=== PATIENT | female | born 1990 | race Caucasian/White ===

== ENCOUNTER 2023-05-25 10:45 | Inpatient (IN) | payer MEDICAID ==
[~2023-05-25] VITALS: Ht 170.2 cm; Wt 57.1 kg
[~2023-05-25 10:45] MED LIST: DIVA-112 PO; FERR325T27 PO; RISP1TAB48 PO
[2023-05-25 11:43] LABS: BASOPHILS % (AUTO) 0.7 % (0.0-2.0); EOSINOPHILS % (AUTO) 0.9 % (1.0-6.0); HEMATOCRIT 39.3 % (36-46); HEMOGLOBIN 12.8 g/dL (12.0-16.0); LYMPHOCYTES # (AUTO) 1.3 K/uL (1.0-4.8); LYMPHOCYTES % (AUTO) 22.9 % (22.0-44.0); MEAN CORPUSCULAR HEMOGLOBIN 27.7 pg (26.0-34.0); MEAN CORPUSCULAR HGB CONC 32.7 G/dL (31.0-37.0); MEAN CORPUSCULAR VOLUME 85 fL (80-100); MONOCYTES # (AUTO) 0.5 K/uL (0.1-1.0); MONOCYTES % (AUTO) 9.5 % (2.0-9.0); NEUTROPHILS # (AUTO) 3.8 K/uL (1.8-7.7); PLATELET COUNT (AUTO) 251 K/uL (150-450); RED BLOOD CELL COUNT(AUTO) 4.63 MIL/uL (4.00-5.20); RED CELL DISTRIBUTION WIDTH 15.5 % (11.5-14.5); WHITE BLOOD COUNT (AUTO) 5.7 K/uL (4.5-11.0)
[2023-05-25 11:49] LABS: ANION GAP 8 mmol/L (8-16); CALCIUM, TOTAL 8.8 mg/dL (8.8-10.5); CARBON DIOXIDE 28 mmol/L (22-29); CHLORIDE 103 mmol/L (98-107); CREATININE 0.76 mg/dL (0.60-1.30); GLOMERULAR FILTR. RATE CALC > 60 mL/min (>60); GLUCOSE,RANDOM 91 mg/dL (70-110); SODIUM SERUM 139 mmol/L (136-145); UREA NITROGEN, BLOOD 21 mg/dL (7-18)
[2023-05-25 11:55] LABS: ALANINE AMINOTRANSFERASE 18 U/L (12-78); ALBUMIN 3.7 g/dL (3.4-5.0); ALKALINE PHOSPHATASE 62 U/L (46-116); ASPARTATE AMINOTRANSFERASE 12 U/L (15-37); BILIRUBIN,TOTAL 0.8 mg/dL (0.1-1.0); TOTAL PROTEIN, SERUM 7.4 g/dL (6.4-8.2)
[2023-05-25 12:03] LABS: ALCOHOL, BLOOD (SERUM) < 3 mg/dL (0-10)
[2023-05-25 12:46] LABS: COVID AG,FIA SOURCE NASAL SWAB
[2023-05-25 13:06] LABS: SARS-COV2 (COVID) ANTIGEN,FIA Negative (Negative)
[2023-05-25 14:01] LABS: PH,URINE DRUG SCREEN 5.5 (5.0-8.0)
[2023-05-25 14:08] LABS: ALCOHOL, URINE DRUG SCREEN NEGATIVE (NEGATIVE); AMPHET/METH SCREEN,URINE POSITIVE (NEGATIVE); BARBITURATE SCREEN, URINE NEGATIVE (NEGATIVE); BENZODIAZEPINES SCREEN,URINE NEGATIVE (NEGATIVE); CANNABINOID SCREEN,URINE POSITIVE (NEGATIVE); COCAINE SCREEN,URINE NEGATIVE (NEGATIVE); METHADONE SCREEN, URINE NEGATIVE (NEGATIVE); OPIATE SCREEN,URINE NEGATIVE (NEGATIVE); PHENCYCLIDINE SCREEN,URINE NEGATIVE (NEGATIVE)
[2023-05-25 20:26] VITALS: BP 101/67; PULSE 75; RESP 16; TEMP 97.6; O2SAT 98
[2023-05-25] MEDS: LORazepam 2 MG TABLET PO PRN (20:36)
[2023-05-25] MEDS: HALOPERIDOL 5 MG TABLET PO PRN (20:36)
[2023-05-26 08:21] VITALS: BP 122/84; PULSE 80; RESP 16; TEMP 97.9; O2SAT 99
[2023-05-26] MEDS: RisperiDONE 1 MG TABLET PO SCH (10:57)
[2023-05-26] MEDS ORDERED: CloNIDine HCL 0.1 MG TABLET PO PRN (18:00)
[2023-05-26] MEDS ORDERED: ALBUTEROL SULFATE HFA 90 MCG/PUFF 8 GM INHALER IH PRN (18:00)
[2023-05-26] MEDS ORDERED: ONDANSETRON HCL 4 MG TABLET PO PRN (18:00)
[2023-05-26] MEDS ORDERED: MAGNESIUM HYDROXIDE SUSPENSION 30 ML UDCUP PO PRN (18:00)
[2023-05-26] MEDS ORDERED: LOPERAMIDE HCL 2 MG CAPSULE PO PRN (18:00)
[2023-05-26] MEDS ORDERED: DOCUSATE SODIUM 100 MG CAPSULE PO PRN (18:00)
[2023-05-26] MEDS ORDERED: NICOTINE 14 MG/24 HOUR PATCH TD PRN (18:00)
[2023-05-26] MEDS ORDERED: IBUPROFEN 400 MG TABLET PO PRN (18:00)
[2023-05-26] MEDS ORDERED: GuaiFENesin/D-METHORPHAN [SUGAR-FREE] 200-20MG/10 ML SYRUP UDCUP PO PRN (18:00)
[2023-05-26] MEDS ORDERED: ACETAMINOPHEN 325 MG TABLET PO PRN (18:00)
[2023-05-26] MEDS ORDERED: PETROLATUM,WHITE 28 GM JELLY TP PRN (18:00)
[2023-05-26 22:30] VITALS: BP 95/58; PULSE 94; RESP 18; TEMP 97; O2SAT 100
[2023-05-27 08:32] LABS: HEMOGLOBIN A1C 5.4 % (3.8-5.6)
[2023-05-27 08:35] VITALS: BP 101/60; PULSE 66; RESP 20; TEMP 97.7; O2SAT 97
[2023-05-27 08:38] LABS: CHOL/HDL RATIO 3.6 (3.9-5.7); THYROID STIMULATING HORMONE 0.16 uIU/mL (0.36-3.74)
[2023-05-27 20:34] VITALS: BP 104/64; PULSE 98; RESP 19; TEMP 97.6; O2SAT 98
[2023-05-28 08:34] VITALS: BP 122/74; PULSE 83; RESP 16; TEMP 98.2; O2SAT 98
[2023-05-28 20:00] VITALS: BP 90/55; PULSE 89; RESP 18; TEMP 98.1; O2SAT 99
[2023-05-29] MEDS ORDERED: DiphenhydrAMINE HCL 50 MG/ML VIAL ONE (05:15)
[2023-05-29] MEDS ORDERED: LORazepam 2 MG/ML VIAL ONE (05:15)
[2023-05-29] MEDS ORDERED: HALOPERIDOL LACTATE 5 MG/ML VIAL ONE (05:15)
[2023-05-29] MEDS: DiphenhydrAMINE HCL 50 MG/ML VIAL IM ONE (05:22)
[2023-05-29] MEDS: LORazepam 2 MG/ML VIAL IM ONE (05:23)
[2023-05-29] MEDS: HALOPERIDOL LACTATE 5 MG/ML VIAL IM ONE (05:23)
[2023-05-29 08:25] VITALS: RESP 16
[2023-05-29] MEDS: RisperiDONE 2 MG TABLET PO SCH (20:29)
[2023-05-30 02:18] VITALS: RESP 16
[2023-05-30 08:42] VITALS: BP 103/62; PULSE 82; RESP 16; TEMP 96.9
[2023-05-30 22:30] VITALS: RESP 18
[2023-05-31 08:12] VITALS: BP 100/67; PULSE 100; RESP 16; TEMP 98; O2SAT 97
[2023-05-31] MEDS: MAG HYDROX/ALUMINUM HYD/SIMETH ES 30 ML SUSPENSION UDCUP PO PRN (20:07)
[2023-06-01 00:14] VITALS: BP 94/58; PULSE 94; RESP 16; TEMP 89.2; O2SAT 98
[2023-06-01 08:23] VITALS: BP 116/73; PULSE 100; RESP 18; TEMP 98.2; O2SAT 100
[2023-06-01 21:32] VITALS: BP 122/76; PULSE 96; RESP 19; TEMP 98.6; O2SAT 99
[2023-06-01] MEDS: RisperiDONE 2 MG TABLET PO SCH (21:35)
[2023-06-02 08:24] VITALS: BP 116/67; PULSE 100; RESP 16; TEMP 98.2; O2SAT 99
[2023-06-02 20:20] VITALS: BP 107/58; PULSE 88; RESP 18; TEMP 97.5; O2SAT 95
[2023-06-03] MEDS: ZOLPIDEM TARTRATE 10 MG TABLET PO PRN (02:47)
[2023-06-03 08:21] VITALS: BP 113/76; PULSE 83; RESP 16; TEMP 98; O2SAT 99
[2023-06-03 20:14] VITALS: BP 97/58; PULSE 118; RESP 18; TEMP 97.8; O2SAT 100
[2023-06-04 08:28] VITALS: BP 117/70; PULSE 103; RESP 16; TEMP 97.9; O2SAT 100
[2023-06-04 20:36] VITALS: BP 108/62; PULSE 96; RESP 18; TEMP 98.2; O2SAT 98
[2023-06-05 08:13] VITALS: BP 113/79; PULSE 79; RESP 16; TEMP 98; O2SAT 96
[2023-06-05] MEDS ORDERED: LORazepam 2 MG/ML VIAL ONE (17:45)
[2023-06-05] MEDS ORDERED: DiphenhydrAMINE HCL 50 MG/ML VIAL ONE (17:46)
[2023-06-05] MEDS ORDERED: HALOPERIDOL LACTATE 5 MG/ML VIAL ONE (17:47)
[2023-06-05] MEDS: LORazepam 2 MG/ML VIAL IM ONE (18:06)
[2023-06-05] MEDS: DiphenhydrAMINE HCL 50 MG/ML VIAL IM ONE (18:06)
[2023-06-05] MEDS: HALOPERIDOL LACTATE 5 MG/ML VIAL IM ONE (18:07)
[2023-06-05 20:08] VITALS: BP 126/76; PULSE 114; RESP 18; TEMP 97.8; O2SAT 99
[2023-06-06 08:28] VITALS: BP 110/71; PULSE 114; RESP 16; TEMP 97.2; O2SAT 100
[2023-06-06 20:13] VITALS: BP 105/75; PULSE 112; RESP 17; TEMP 97.7; O2SAT 96
[2023-06-07 08:18] VITALS: BP 118/74; PULSE 86; RESP 16; TEMP 97.9; O2SAT 98
[2023-06-07 23:46] VITALS: RESP 17
[2023-06-08 08:54] VITALS: BP 120/71; PULSE 100; RESP 17; TEMP 98; O2SAT 100
[2023-06-08 20:42] VITALS: BP 114/67; PULSE 100; RESP 19; TEMP 98; O2SAT 99
[2023-06-09 14:02] VITALS: BP 117/71; PULSE 100; RESP 16; TEMP 97.7; O2SAT 100
[2023-06-09 20:15] VITALS: BP 126/64; PULSE 76; RESP 18; TEMP 97.6; O2SAT 99
[2023-06-10 01:29] VITALS: BP 112/85; PULSE 120; RESP 18; TEMP 97.5; O2SAT 100
[2023-06-10 08:24] VITALS: BP 108/69; PULSE 80; RESP 18; TEMP 97.8; O2SAT 98
[2023-06-10 23:11] VITALS: RESP 18
[2023-06-11] MEDS: HydrOXYzine PAMOATE 50 MG CAPSULE PO PRN (08:13)
[2023-06-11 08:20] VITALS: BP 113/72; PULSE 79; RESP 16; TEMP 97.6; O2SAT 100
[2023-06-11] MEDS: BENZTROPINE MESYLATE 1 MG TABLET PO SCH (10:35)
[2023-06-11 20:51] VITALS: BP 100/63; PULSE 81; RESP 18; TEMP 97.5; O2SAT 99
[2023-06-11] MEDS: TraZODone HCL 50 MG TABLET PO SCH (21:07)
[2023-06-11 22:40] VITALS: BP 84/36; PULSE 55; RESP 15; O2SAT 100
[2023-06-11 22:45] VITALS: BP 91/60; PULSE 98; RESP 15; TEMP 98; O2SAT 99
[2023-06-12] MEDS ORDERED: RISP3TAB63 PO ×2 (02:21→07:26)
[2023-06-12] MEDS ORDERED: LOPE-232 PO (02:21)
[2023-06-12] MEDS ORDERED: HYDR50CA7 PO (02:21)
[2023-06-12] MEDS ORDERED: NICO-703 TD (02:21)
[2023-06-12] MEDS ORDERED: TRAZ-184 PO (02:21)
[2023-06-12] MEDS ORDERED: BENZ1TAB84 PO ×2 (02:21→07:26)
[2023-06-12] MEDS ORDERED: GUAIFDM PO (02:21)
[2023-06-12] MEDS ORDERED: CLON0.1T2 PO (02:21)
[2023-06-12] MEDS ORDERED: ONDA-104 PO (02:22)
[2023-06-12] MEDS ORDERED: ACET325S20 PR (02:22)
[2023-06-12] MEDS ORDERED: MAG30ORA11 PO (02:22)
[2023-06-12] MEDS ORDERED: IBUP-1506 PO (02:22)
[2023-06-12] MEDS ORDERED: MAGN-169 PO (02:22)
[2023-06-12] MEDS ORDERED: DOCU-385 PO (02:22)
[2023-06-12] MEDS ORDERED: ALBU18HF12 IH (02:22)
[2023-06-12] MEDS ORDERED: TRAZ-252 PO (07:26)
[2023-06-12 08:17] VITALS: BP 117/70; PULSE 100; RESP 18; TEMP 97.9; O2SAT 100
== END 2023-06-12 16:27 | disposition home or self-care (01) | DRG 750 ==
LOC: EMS 10:59 → B3A 16:29
PROVIDERS: ADMIT Psychiatry & Neurology Child & Adolescent Psychiatry; ATTEND Psychiatry & Neurology Child & Adolescent Psychiatry
PROC: GZHZZZZ Group Psychotherapy (ICD-10-PCS; principal; 2023-06-03)
DX: F20.0 Paranoid schizophrenia (principal); I95.9 Hypotension, unspecified; D64.9 Anemia, unspecified; F15.10 Other stimulant abuse, uncomplicated; F12.10 Cannabis abuse, uncomplicated; Z20.822 Contact with and (suspected) exposure to COVID-19; G47.00 Insomnia, unspecified; F41.9 Anxiety disorder, unspecified; Z79.899 Other long term (current) drug therapy; Z59.00 Homelessness unspecified
CPT/HCPCS: 80053; 80061; 80307; 83036; 84443; 84703; 85025; 99285; G0480; J1200; J1630; J2060